=== PATIENT | male | born 1965 | race Caucasian/White ===

== ENCOUNTER 2017-04-22 11:15 | Inpatient (IN) | payer OTHER ==
[2017-04-22] VITALS (7 sets, daily range): BP systolic 117–159; BP diastolic 77–103; PULSE 85–90; RESP 14–20; TEMP 97.9–98.8; O2SAT 93–96
[~2017-04-22] VITALS: Ht 182.9 cm; Wt 122.6 kg
--- NOTE | 2017-04-22 11:59 | RADRPT ---
EXAM DATE/TIME: 04/22/2017 11:45 [facility] COMPARISON: No previous studies available for comparison. INDICATIONS : Left sided chest pain. MEDICAL HISTORY : None. SURGICAL HISTORY : None. ENCOUNTER: Initial ACUITY: 1 day PAIN SCORE: 5/10 LOCATION: Left chest FINDINGS: PA and lateral views of the chest demonstrate the lungs to be symmetrically aerated without evidence of mass, infiltrate or effusion. The cardiomediastinal contours are unremarkable. Osseous structure s are intact. CONCLUSION: No acute disease. Viet Gutierrez MD FACR on April 22, 2017 at 11:57 Board Certified Radiologist. This report was verified electronically.
[2017-04-22 12:06] LABS: AUTOMATED NEUTROPHIL # 6.2 TH/MM3 (1.8-7.7); BASOPHIL % 0.4 % (0.0-2.0); EOSINOPHIL # 0.2 TH/MM3 (0-0.4); EOSINOPHIL % 2.6 % (0.0-4.0); HEMATOCRIT 48.5 % (39.0-51.0); HEMOGLOBIN 16.6 GM/DL (13.0-17.0); LYMPH % 17.2 % (9.0-44.0); LYMPHOCYTE # 1.5 TH/MM3 (1.0-4.8); MEAN CELL VOLUME 94.4 FL (80.0-100.0); MEAN CORPUSCULAR HEMOGLOBIN 32.3 PG (27.0-34.0); MEAN CORPUSCULAR HGB CONC 34.3 % (32.0-36.0); MEAN PLATELET VOLUME 7.6 FL (7.0-11.0); MONO % 10.5 % (0.0-8.0); MONOCYTE # 0.9 TH/MM3 (0-0.9); NEUT % 69.3 % (16.0-70.0); PLATELET COUNT 134 TH/MM3 (150-450); RED BLOOD COUNT 5.14 MIL/MM3 (4.50-5.90); RED CELL DISTRIBUTION WIDTH 13.6 % (11.6-17.2)
[2017-04-22] MEDS ORDERED: [UNRECOGNIZED DRUG - CODE] TOPICAL (12:11)
[2017-04-22] MEDS ORDERED: ATEN25TA PO (12:11)
[2017-04-22 12:26] LABS: BICARBONATE 27.8 MEQ/L (21.0-32.0); CALCIUM 8.6 MG/DL (8.5-10.1); CREATININE 1.31 MG/DL (0.60-1.30)
[2017-04-22] MEDS ORDERED: ASPIRIN 81 MG CHEW TAB PO ONE (12:30)
[2017-04-22] MEDS ORDERED: SODIUM CHLORIDE 0.9% FLUSH 10 ML FLUSH IVF PRN (12:30)
[2017-04-22] MEDS ORDERED: SODIUM CHLORID 0.9% 500 ML INJ 500 ML IV ONE (12:30)
[2017-04-22] MEDS ORDERED: NITROGLYCERIN 2% OINT 1 GM PACKET TOP ONE (12:30)
[2017-04-22 12:31] LABS: TROPONIN I 0.18 NG/ML (0.02-0.05)
--- NOTE | 2017-04-22 12:36 | PD ---
HPI Chief Complaint: Chest Pain Time Seen by Provider: 12:20 Travel History International Travel<30 days: No Contact w/Intl Traveler<30days: No Traveled to known affect area: No History of Present Illness HPI The patient is a 51-year-old male who presents to the emergency department for chest pain. The patient states he has had some exertional symptoms for the last several weeks, but developed chest pain last night. The patient was at work, at the [employer], when he developed chest pain. The chest pain was left-sided, initially described as tightness and pressure, but did become sharp. The pain lasted until he sat down. He did complain of mild shortness of breath and chest tightness with his symptoms, denied any nausea, vomiting, or diaphoresis. After he rested for a while the chest pain resolved, however, returned this morning while he was getting dressed. He was seen at [facility] office where he had an EKG performed revealing inverted T waves and was sent to emergency department for further evaluation. The patient does have a history of hypertension, denies any history of hyperlipidemia, tobacco use, diabetes, CAD, or significant early family history for heart disease. He does complain of some exertional symptoms. The patient's primary physician is Dr. Drake Taylor. COUNT INCLUDES THE [facility] Past Medical History Cardiovascular Problems: Yes (HTN) Hypertension: Yes Sleep Apnea: Yes Tetanus Vaccination: Unknown Influenza Vaccination: No Social History Alcohol Use: Yes Tobacco Use: No Substance Use: No Allergies-Medications (Allergen,Severity, Reaction): Coded Allergies: No Known Allergies (Unverified , 04/22/17) Reported Meds & Prescriptions Reported Meds & Active Scripts Active Reported Ciclopirox Topical (Ciclopirox Olamine) 0.77% Cream 1 Applic TOPICAL TID Atenolol 25 Mg Tab 25 Mg PO DAILY Review of Systems Except as stated in HPI: all other systems reviewed are Neg General / Constitutional: No: Fever HENT: No: Lightheadedness Cardiovascular: Positive: Chest Pain or Discomfort, Dyspnea on exertion, No: Diaphoresis Respiratory: Positive: Shortness of Breath Gastrointestinal: No: Nausea, Vomiting Musculoskeletal: No: Weakness, Edema Neurologic: No: Dizziness Physical Exam Narrative GENERAL: Awake, alert, pleasant 51-year-old male who appears his stated age and is in no acute respiratory distress. SKIN: Focused skin assessment warm/dry. HEAD: Atraumatic. Normocephalic. EYES: No injection or drainage. ENT: No nasal bleeding or discharge. Mucous membranes pink and moist. NECK: Trachea midline. No JVD. CARDIOVASCULAR: Regular rate and rhythm. No murmur appreciated. RESPIRATORY: No accessory muscle use. Clear to auscultation. Breath sounds equal bilaterally. GASTROINTESTINAL: Abdomen soft, non-tender, nondistended. No rebound tenderness. MUSCULOSKELETAL: No obvious deformities. No clubbing. No cyanosis. No edema. NEUROLOGICAL: Awake and alert. No obvious cranial nerve deficits. Motor grossly within normal limits. Normal speech. Nonfocal. PSYCHIATRIC: Appropriate mood and affect; insight and judgment normal. Data Data Last Documented VS Vital Signs Date Time Temp Pulse Resp B/P (MAP) Pulse Ox O2 Delivery O2 Flow Rate FiO2 04/22/17 12:25 86 17 129/82 (98) 96 Room Air 134/90 (105) 04/22/17 11:19 97.9 Orders Orders Electrocardiogram (04/22/17 11:27) Complete Blood Count With Diff (04/22/17 11:27) Basic Metabolic Panel (Bmp) (04/22/17 11:27) Ckmb (Isoenzyme) Profile (04/22/17 11:27) Troponin I (04/22/17 11:27) Chest, Pa & Lat (04/22/17 ) Basic Metabolic Panel (Bmp) (04/22/17 12:20) Ecg Monitoring (04/22/17 12:20) Bilateral Bp Monitoring (04/22/17 12:20) Iv Access Insert/Monitor (04/22/17 12:20) Oximetry (04/22/17 12:20) Oxygen Administration (04/22/17 12:20) Aspirin Chew (Aspirin Chew) (04/22/17 12:30) Nitroglycerin 2% Oint (Nitroglycerin 2% (04/22/17 12:30) Sodium Chloride 0.9% Flush (Ns Flush) (04/22/17 12:30) Sodium Chlorid 0.9% 500 Ml Inj (Ns 500 M (04/22/17 12:30) Heparin Inj (Heparin Inj) (04/22/17 13:15) Heparin Inj (Heparin Inj) (04/22/17 19:15) Heparin Inj (Heparin Inj) (04/22/17 19:15) Heparin-D5w 25,000 U/250 Ml (Heparin-D5w (04/22/17 14:00) Act Partial Throm Time (Ptt) (04/22/17 13:02) Prothrombin Time / Inr (Pt) (04/22/17 13:02) Cbc No Diff, Includes Plts (04/22/17 13:02) Cbc No Diff, Includes Plts (04/25/17 06:00) Act Partial Throm Time (Ptt) (04/22/17 20:02) Occult Blood (Hemoccult) Stool (04/22/17 13:02) Admit Order (Ed Use Only) (04/22/17 13:30) Admit To Inpatient (04/22/17 ) Code Status (04/22/17 13:29) Vital Signs (Adult) Q4H (04/22/17 13:29) Activity Oob With Assistance (04/22/17 13:29) Pet Caretaker / Telemetry .CONTINUOUS (04/22/17 13:29) Diet Npo (04/22/17 Lunch) Sodium Chloride 0.9% Flush (Ns Flush) (04/22/17 13:30) Sodium Chloride 0.9% Flush (Ns Flush) (04/22/17 21:00) Acetaminophen (Tylenol) (04/22/17 13:30) Ondansetron Inj (Zofran Inj) (04/22/17 13:30) Basic Metabolic Panel (Bmp) (04/23/17 06:00) Complete Blood Count With Diff (04/23/17 06:00) Chest, Single Ap (04/22/17 13:29) Electrocardiogram (04/22/17 18:00) Electrocardiogram (04/23/17 00:00) Resp Oxygen Zak C Titrat 1-4 L (04/22/17 ) Naloxone Inj (Narcan Inj) (04/22/17 13:30) Magnesium Hydroxide Liq (Milk Of Magnesi (04/22/17 13:30) Inpatient Certification (04/22/17 ) Labs Laboratory Tests Test 04/22/17 11:38 04/22/17 12:30 04/22/17 13:20 White Blood Count 9.0 TH/MM3 8.5 TH/MM3 Red Blood Count 5.14 MIL/MM3 4.63 MIL/MM3 Hemoglobin 16.6 GM/DL 15.2 GM/DL Hematocrit 48.5 % 44.1 % Mean Corpuscular Volume 94.4 FL 95.2 FL Mean Corpuscular Hemoglobin 32.3 PG 32.9 PG Mean Corpuscular Hemoglobin Concent 34.3 % 34.6 % Red Cell Distribution Width 13.6 % 13.8 % Platelet Count 134 TH/MM3 113 TH/MM3 Mean Platelet Volume 7.6 FL 7.5 FL Neutrophils (%) (Auto) 69.3 % Lymphocytes (%) (Auto) 17.2 % Monocytes (%) (Auto) 10.5 % Eosinophils (%) (Auto) 2.6 % Basophils (%) (Auto) 0.4 % Neutrophils # (Auto) 6.2 TH/MM3 Lymphocytes # (Auto) 1.5 TH/MM3 Monocytes # (Auto) 0.9 TH/MM3 Eosinophils # (Auto) 0.2 TH/MM3 Basophils # (Auto) 0.0 TH/MM3 CBC Comment DIFF FINAL Differential Comment Blood Urea Nitrogen 12 MG/DL 12 MG/DL Creatinine 1.31 MG/DL 1.21 MG/DL Random Glucose 122 MG/DL 118 MG/DL Calcium Level 8.6 MG/DL 8.4 MG/DL Sodium Level 140 MEQ/L 140 MEQ/L Potassium Level 3.9 MEQ/L 4.0 MEQ/L Chloride Level 105 MEQ/L 107 MEQ/L Carbon Dioxide Level 27.8 MEQ/L 27.4 MEQ/L Anion Gap 7 MEQ/L 6 MEQ/L Estimat Glomerular Filtration Rate 58 ML/MIN 63 ML/MIN Total Creatine Kinase 93 U/L Troponin I 0.18 NG/ML Prothrombin Time 10.9 SEC Prothromb Time International Ratio 1.1 RATIO Activated Partial Thromboplast Time 25.4 SEC MDM Medical Decision Making Medical Screen Exam Complete: Yes Emergency Medical Condition: Yes Medical Record Reviewed: Yes Interpretation(s) EKG reveals normal sinus rhythm with a rate 87. Inverted T waves noted in lead V1, V2, V3, V4. Last Impressions Chest X-Ray 04/22/17 0000 Signed Impressions: Service Date/Time: Saturday, April 22, 2017 11:45 - CONCLUSION: No acute disease. Viet Gutierrez MD FACR Laboratory Tests Test 04/22/17 11:38 04/22/17 12:30 White Blood Count 9.0 TH/MM3 Red Blood Count 5.14 MIL/MM3 Hemoglobin 16.6 GM/DL Hematocrit 48.5 % Mean Corpuscular Volume 94.4 FL Mean Corpuscular Hemoglobin 32.3 PG Mean Corpuscular Hemoglobin Concent 34.3 % Red Cell Distribution Width 13.6 % Platelet Count 134 TH/MM3 Mean Platelet Volume 7.6 FL Neutrophils (%) (Auto) 69.3 % Lymphocytes (%) (Auto) 17.2 % Monocytes (%) (Auto) 10.5 % Eosinophils (%) (Auto) 2.6 % Basophils (%) (Auto) 0.4 % Neutrophils # (Auto) 6.2 TH/MM3 Lymphocytes # (Auto) 1.5 TH/MM3 Monocytes # (Auto) 0.9 TH/MM3 Eosinophils # (Auto) 0.2 TH/MM3 Basophils # (Auto) 0.0 TH/MM3 CBC Comment DIFF FINAL Differential Comment Blood Urea Nitrogen 12 MG/DL Creatinine 1.31 MG/DL Random Glucose 122 MG/DL Calcium Level 8.6 MG/DL Sodium Level 140 MEQ/L Potassium Level 3.9 MEQ/L Chloride Level 105 MEQ/L Carbon Dioxide Level 27.8 MEQ/L Anion Gap 7 MEQ/L Estimat Glomerular Filtration Rate 58 ML/MIN Total Creatine Kinase 93 U/L Troponin I 0.18 NG/ML Differential Diagnosis Differential diagnosis includes acute coronary syndrome, deconditioning, STEMI, angina, cardiomyopathy, congestive heart failure. Narrative Course IV was established, labs are drawn and sent, and the patient was placed on cardiac telemetry monitoring and continuous pulse oximetry monitoring. EKG was ordered and interpreted. The patient does have inverted T waves in V1 through V4 which appear new compared to old EKGs. The patient was administered aspirin placed and on Nitropaste. Chest x-rays unremarkable. The patient's troponin was positive at 0.18, with EKG changes and inverted T waves, the patient has acute coronary syndrome. A call was placed to the on-call [facility] medicine team as well as the on-call [facility] cardiology team. The patient may need heparin and/or Lovenox. The patient was placed on a heparin drip. I discussed the patient with Dr. Boo and Dr. Asher, the patient will be kept nothing by mouth for the cardiac catheterization lab later today. Critical Care Narrative Aggregate critical care time was 35 minutes. Time to perform other separately billable procedures was not included in the critical care time. My time did not include minutes spent treating any other patients simultaneously or on activities that did not directly contribute to the patient's treatment. The services I provided to this patient were to treat and/or prevent clinically significant deterioration that could result in: Ischemia, arrhythmia, myocardial infarction. I provided critical care services requiring my management, as noted below: Chart data review, documentation time, medication orders and management, vital sign assessments/reviewing monitor data, ordering and reviewing lab tests, ordering and interpreting/reviewing x-rays and diagnostic studies, care of the patient and discussion of the patient with the admitting physicians. Physician Communication Physician Communication The on-call [facility] medicine team and employment instructional associate were paged. I discussed the patient with Dr. Boo, Dr. Hale, and Dr. Asher. Diagnosis Primary Impression: NSTEMI, initial episode of care Admitting Information Admitting Physician Requests: Admit Condition: Stable Ulysses Paulino MD Apr 22, 2017 12:36
[2017-04-22 13:06] LABS: BICARBONATE 27.4 MEQ/L (21.0-32.0); CALCIUM 8.4 MG/DL (8.5-10.1); CREATININE 1.21 MG/DL (0.60-1.30)
[2017-04-22] MEDS ORDERED: HEPARIN SODIUM - IV 10,000 UNITS/10 ML VIAL IV ONE (13:15)
[2017-04-22] MEDS ORDERED: NALOXONE HCL 0.4 MG/ML AMP IV PUSH PRN (13:30)
[2017-04-22] MEDS ORDERED: MAGNESIUM HYDROXIDE SUSP 30 ML CUP PO PRN (13:30)
[2017-04-22] MEDS ORDERED: ONDANSETRON HCL 4 MG/2 ML VIAL IVP PRN (13:30)
[2017-04-22] MEDS ORDERED: ACETAMINOPHEN 325 MG TAB PO PRN (13:30)
[2017-04-22] MEDS ORDERED: SODIUM CHLORIDE 0.9% FLUSH 10 ML FLUSH IV FLUSH PRN (13:30)
--- NOTE | 2017-04-22 13:40 | HHI.HP ---
HPI Service [facility] Hospitalists Primary Care Physician Drake Taylor MD Admission Diagnosis NSTEMI Chief Complaint: chest pain Travel History International Travel<30 Days: No Contact w/Intl Traveler <30 Da: No Traveled to Known Affected Are: No History of Present Illness This is a 51 year old male patient with a past medical history which includes HTN, Hyperlipidemia, obesity and sleep apnea. Patient presented to the ER today with left sided chest pain which start last night. 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 Patient reports the chest pain lasted approximately 2-3 minutes and was told he sat down and struck. The patient got up this morning and was getting dressed reports chest pain came back again. Chest pain is exacerbated by activity such as walking and relieved with sitting and rest. EKG on admission reveals: inverted T waves in V1 through V4 which appear new compared to old EKGs Initial troponin 0.18 Review of Systems Constitutional: COMPLAINS OF: Diaphoretic episodes Respiratory: COMPLAINS OF: Shortness of breath Cardiovascular: COMPLAINS OF: Chest pain Past Family Social History Past Medical History HTN, Hyperlipidemia, obesity and sleep apnea. Past Surgical History Hand surgery Jaw surgery Oral surgery for tooth extraction Reported Medications Ciclopirox Topical (Ciclopirox Olamine) 0.77% Cream 1 Applic TOPICAL TID Atenolol 25 Mg Tab 25 Mg PO DAILY Allergies: Coded Allergies: No Known Allergies (Unverified , 04/22/17) Family History Mother passed with secondary breast cancer Patient has brother and sister who are alive and healthy Social History ETOH use daily 3-4 beer per day denies tobacco use now or in the past Physical Exam Vital Signs Vital Signs Date Time Temp Pulse Resp B/P (MAP) Pulse Ox O2 Delivery O2 Flow Rate FiO2 04/22/17 12:25 86 17 129/82 (98) 96 Room Air 134/90 (105) 04/22/17 12:24 96 Room Air 04/22/17 12:24 86 17 129/82 (98) 96 Room Air 04/22/17 12:13 90 19 129/82 (98) 95 Room Air 04/22/17 12:13 87 19 94 Room Air 04/22/17 11:19 97.9 88 14 159/103 (121) 96 Room Air Physical Exam GENERAL: This is a well-nourished, well-developed patient SKIN: No rashes, ecchymoses or lesions. Cool and dry. HEAD: Atraumatic. Normocephalic. No temporal or scalp tenderness. EYES: Extraocular motions intact. No scleral icterus. No injection or drainage. CARDIOVASCULAR: Regular rate and rhythm RESPIRATORY: Clear to auscultation. Breath sounds equal bilaterally. GASTROINTESTINAL: Abdomen soft, non-tender, nondistended. No hepato-splenomegaly , or palpable masses. No guarding. MUSCULOSKELETAL: Extremities without clubbing, cyanosis, or edema. No joint tenderness, effusion, or edema noted. No calf tenderness. Negative Homans sign bilaterally. NEUROLOGICAL: Awake and alert. No focal deficits appreciated. Motor and sensory grossly within normal limits. Five out of 5 muscle strength in all muscle groups. Normal speech. Laboratory Laboratory Tests Test 04/22/17 11:38 04/22/17 12:30 White Blood Count 9.0 Red Blood Count 5.14 Hemoglobin 16.6 Hematocrit 48.5 Mean Corpuscular Volume 94.4 Mean Corpuscular Hemoglobin 32.3 Mean Corpuscular Hemoglobin Concent 34.3 Red Cell Distribution Width 13.6 Platelet Count 134 Mean Platelet Volume 7.6 Neutrophils (%) (Auto) 69.3 Lymphocytes (%) (Auto) 17.2 Monocytes (%) (Auto) 10.5 Eosinophils (%) (Auto) 2.6 Basophils (%) (Auto) 0.4 Neutrophils # (Auto) 6.2 Lymphocytes # (Auto) 1.5 Monocytes # (Auto) 0.9 Eosinophils # (Auto) 0.2 Basophils # (Auto) 0.0 CBC Comment DIFF FINAL Differential Comment Blood Urea Nitrogen 12 12 Creatinine 1.31 1.21 Random Glucose 122 118 Calcium Level 8.6 8.4 Sodium Level 140 140 Potassium Level 3.9 4.0 Chloride Level 105 107 Carbon Dioxide Level 27.8 27.4 Anion Gap 7 6 Estimat Glomerular Filtration Rate 58 63 Total Creatine Kinase 93 Troponin I 0.18 Result Diagram: 04/22/17 1138 04/22/17 1230 Imaging Last Impressions Chest X-Ray 04/22/17 0000 Signed Impressions: Service Date/Time: Saturday, April 22, 2017 11:45 - CONCLUSION: No acute disease. Viet Gutierrez MD FACR Ronaldo VTE Risk Assessment Caprini VTE Risk Assessment: No/Low Risk (score <= 1) Caprini Risk Assessment Model Point Value = 1 Point Value = 2 Point Value = 3 Point Value = 5 Age 41-60 Minor surgery BMI > 25 kg/m2 Swollen legs Varicose veins or History of unexplained or recurrent spontaneous Oral contraceptives or hormone replacement Sepsis (< 1 month) Serious lung disease, including pneumonia (< 1 month) Abnormal pulmonary function Acute myocardial infarction Congestive heart failure (< 1 month) History of inflammatory bowel disease Medical patient at bed rest Age 61-74 Arthroscopic surgery Major open surgery (> 45 min) Laparoscopic surgery (> 45 min) Malignancy Confined to bed (> 72 hours) Immobilizing plaster cast Central venous access Age >= 75 History of VTE Family history of VTE Factor V Leiden Prothrombin [id number] Lupus anticoagulant Anticardiolipin antibodies Elevated serum homocysteine Heparin-induced thrombocytopenia Other congenital or acquired thrombophilia Stroke (< 1 month) Elective arthroplasty Hip, pelvis, or leg fracture Acute spinal cord injury (< 1 month) Prophylaxis Regimen Total Risk Factor Score Risk Level Prophylaxis Regimen 0-1 Low Early ambulation 2 Moderate Order ONE of the following: *Sequential Compression Device (SCD) *Heparin 5000 units SQ BID 3-4 Higher Order ONE of the following medications: *Heparin 5000 units SQ TID *Enoxaparin/Lovenox 40 mg SQ daily (WT < 150 kg, CrCl > 30 mL/min) *Enoxaparin/Lovenox 30 mg SQ daily (WT < 150 kg, CrCl > 10-29 mL/min) *Enoxaparin/Lovenox 30 mg SQ BID (WT < 150 kg, CrCl > 30 mL/min) AND/OR *Sequential Compression Device (SCD) 5 or more Highest Order ONE of the following medications: *Heparin 5000 units SQ TID (Preferred with Epidurals) *Enoxaparin/Lovenox 40 mg SQ daily (WT < 150 kg, CrCl > 30 mL/min) *Enoxaparin/Lovenox 30 mg SQ daily (WT < 150 kg, CrCl > 10-29 mL/min) *Enoxaparin/Lovenox 30 mg SQ BID (WT < 150 kg, CrCl > 30 mL/min) AND *Sequential Compression Device (SCD) Assessment and Plan Problem List: (1) NSTEMI, initial episode of care ICD Codes: I21.4 - Non-ST elevation (NSTEMI) myocardial infarction Status: Acute Plan: Chest pain consistent with non-STEMI EKG on admission reveals: inverted T waves in V1 through V4 which appear new compared to old EKGs Initial troponin 0.18, serial cardiac enzymes pending Consult cardiology patient's been evaluated by Dr. Asher plans to take to cardiac Vehicle [employer] today Patient given aspirin and nitroglycerin paste in ER Patient started on heparin drip emergency department per protocol Patient nothing by mouth at this time Plan to resume atenolol tomorrow as patient is very taken his dose today and Lipid profile in a.m. 2-D echocardiogram requested (2) HTN (hypertension) ICD Codes: I10 - Essential (primary) hypertension Plan: Patient takes atenolol for hypertension 25 mg by mouth daily we'll resume in a.m. (3) Hyperlipidemia ICD Codes: E78.5 - Hyperlipidemia, unspecified Plan: Lipid profile in a.m. (4) EtOH dependence ICD Codes: F10.20 - Alcohol dependence, uncomplicated Status: Chronic Plan: [facility] protocol Assessment and Plan Patient examined. Assessment and plan formulated with Jocelyn Palomino PA-C. I agree with the above. Case d/w Dr. Asher, Cardiology, following [facility]. No significant stenosis. Will observe pt on telemetry overnight. If pt remains stable, anticipate d/c to home 04/23/17. Problem Qualifiers (1) EtOH dependence: Qualified Codes: F10.29 - Alcohol dependence with unspecified alcohol-induced disorder Jocelyn Palomino Apr 22, 2017 13:40 Asif Hale DO Apr 22, 2017 23:26
[2017-04-22 13:49] LABS: HEMATOCRIT 44.1 % (39.0-51.0); HEMOGLOBIN 15.2 GM/DL (13.0-17.0); MEAN CELL VOLUME 95.2 FL (80.0-100.0); MEAN CORPUSCULAR HEMOGLOBIN 32.9 PG (27.0-34.0); MEAN CORPUSCULAR HGB CONC 34.6 % (32.0-36.0); MEAN PLATELET VOLUME 7.5 FL (7.0-11.0); PLATELET COUNT 113 TH/MM3 (150-450); RED BLOOD COUNT 4.63 MIL/MM3 (4.50-5.90); RED CELL DISTRIBUTION WIDTH 13.8 % (11.6-17.2); WHITE BLOOD COUNT 8.5 TH/MM3 (4.0-11.0)
[2017-04-22 13:54] LABS: INTERNATIONAL NORMALIZED RATIO 1.1 RATIO; PROTHROMBIN TIME - PATIENT 10.9 SEC (9.8-11.6)
[2017-04-22] MEDS ORDERED: LORazepam 2 MG TAB PO PRN (14:00)
[2017-04-22] MEDS ORDERED: FLUMAZENIL 0.5 MG/5 ML VIAL IV PUSH PRN (14:00)
[2017-04-22] MEDS ORDERED: LORazepam 1 MG TAB PO PRN (14:00)
[2017-04-22] MEDS ORDERED: HEPARIN-D5W 25,000 U/250 ML 250 ML IV PRN ×2 (14:00→15:00)
[2017-04-22] MEDS ORDERED: LORazepam 2 MG/ML VIAL IV PUSH PRN ×4 (14:00)
--- NOTE | 2017-04-22 14:53 | RADRPT ---
EXAM DATE/TIME: 04/22/2017 14:21 [facility] COMPARISON: CHEST PA & LAT, April 22, 2017, 11:45. INDICATIONS : Left lower chest pain. MEDICAL HISTORY : None. SURGICAL HISTORY : None. ENCOUNTER: Initial ACUITY: 1 day PAIN SCORE: 6/10 LOCATION: Left lower chest FINDINGS: A single view of the chest demonstrates the lungs to be symmetrically aerated without evidence of mas s, infiltrate or effusion. The cardiomediastinal contours are unremarkable. Osseous structures are intact. CONCLUSION: 1. No acute cardiopulmonary findings. Monty Gutierrez MD on April 22, 2017 at 14:51 Board Certified Radiologist. This report was verified electronically.
[2017-04-22] MEDS ORDERED: HEPARIN SODIUM - IV 10,000 UNITS/10 ML VIAL IV PRN ×4 (15:00→19:15)
[2017-04-22] MEDS ORDERED: ASPIRIN 325 MG TAB PO ONE (15:00)
[2017-04-22] MEDS ORDERED: NITROGLYCERIN 2% OINT 1 GM PACKET TOP SCH (15:00)
--- NOTE | 2017-04-22 15:17 | ECHRPT ---
Indication: CHEST PAIN CONCLUSIONS Normal left ventricular size. Wall thickness is normal. The left ventricular systolic function is low normal with an estimated ejection fraction in the rang e of 50- 55%. The pulmonary valve is not well visualized. BP: 134 / 90 HR: Rhythm: Sinus MEASUREMENTS (Male / Female) Normal Values Technical Quality:Very technically difficult study 2D ECHO LV Diastolic Diameter PLAX 4.5 cm 4.2 - 5.9 / 3.9 - 5.3 cm LV Systolic Diameter PLAX 3.5 cm IVS Diastolic Thickness 0.9 cm 0.6 - 1.0 / 0.6 - 0.9 cm LVPW Diastolic Thickness 0.9 cm 0.6 - 1.0 / 0.6 - 0.9 cm LV Relative Wall Thickness 0.4 RV Internal Dim ED PLAX 3.2 cm LVOT Diameter 2.3 cm Aortic Root Diameter 2.8 cm LA Systolic Diameter LX 3.2 cm 3.0 - 4.0 / 2.7 - 3.8 cm DOPPLER LVOT Peak Velocity 85.5 cm/s LVOT Peak Gradient 2.9 mmHg LVOT Velocity Time Integral 11.9 cm Mitral E Point Velocity 5.2 cm/s FINDINGS LEFT VENTRICLE Normal left ventricular size. Wall thickness is normal. The left ventricular systolic function is low normal with an estimated ejection fraction in the rang e of 50- 55%. RIGHT VENTRICLE Normal right ventricular size and systolic function. MITRAL VALVE Structurally normal mitral valve. No mitral valve stenosis or regurgitation. AORTIC VALVE Trileaflet aortic valve. No aortic valve stenosis or regurgitation. TRICUSPID VALVE Structurally normal tricuspid valve. No tricuspid valve stenosis or regurgitation. PULMONARY VALVE The pulmonary valve is not well visualized. VESSELS The inferior vena cava is normal in size. PERICARDIUM No pericardial effusion. Clarence Asher MD, FACC (Electronically Signed) Final Date:22 April 2017 15:15
[2017-04-22] MEDS ORDERED: MIDAZOLAM HCL 2 MG/2 ML VIAL ONE (15:27)
[2017-04-22] MEDS ORDERED: HEPARIN-NS/PF FLUSH BAG 1,000 ML IV FLUSH ONE (15:27)
[2017-04-22] MEDS ORDERED: HEPARIN SODIUM - IV 10,000 UNITS/10 ML VIAL ONE (15:28)
[2017-04-22] MEDS ORDERED: NITROGLYCERIN INJ 5 ML ONE (15:28)
--- NOTE | 2017-04-22 16:12 | CATHPROC ---
[employer] HIS Report Study Information Study Number Admission Scheduled Start Study Start [id number] Apr 22 2017 1:33PM 04/22/2017 Apr 22 2017 3:23PM Bryan Service Cardiac Catheterization Admit Source Facility Department Emergency department [facility] - Logistics Intern Physician and Clinical Staff Initial Clarence Block Mock Up Assembler Radha Pitts,DARLIN Mock Up Assembler Princess Saldivar,DARLIN Recorder Alissa Vega,RT(R) Recorder Paz Alexander RCIS TECH2 Scrub Nevaeh Sutton,RT(R) (BS) Scrub Sarah Mercado ,RT(R) Procedures Performed Procedure Location (Site) Vessel Name Angiogram LV AO Arch (A1) Aorta Coronary Angiograms LCA Left Coronary Coronary Angiograms RCA Right Coronary L Heart Cath Equipment Time Supervisor [employer] Description Size Mfg Part Number Used/Scraped TRANSDUCER, TRUWAVE [id number] 15:26 [employer] ONEAL * Used W/STOCKCOCK *[id number] 534-518T *[id number] [id number] *[id number] PIGTAIL ANG. 145 INFINITI [id number] CATHETER *[id number] 15:26 [employer] PACK, CCL CUSTOM * Used *[id number] 15:26 [employer] SUPPORT, ARTERIAL ADULT 39000 *[id number] Used [id number] 15:26 [employer] PACER PEN, SKIN DUAL W/ RULER * Used *[id number] BAND, RADIAL COMPRESSION TR [id number] 16:03 [employer] 29CM Used LARGE 29 *[id number] SHEATH, FR6 RADIAL PRELUDE 15:26 [employer] FR 6 [id number] Used EASE 11CM [id number] 15:26 [employer] WIRE, EXCHANGE 260CM 3MMJ 260CM Used *[id number] 15:53 NAMIC TUBING, HIGH PRESSURE 20" 20" Used *[id number] 15:26 [employer] OMNIPAQUE, 350 MG, 150ML 150ML [id number] Used 15:55 [employer] OMNIPAQUE, 350 MG, 50ML 50ML [id number] Used [id number] 15:26 Mtime BLANKET,WARM AIR CCL * Used *[id number] History: Current Medications Medication Dosage/Unit Route Frequency Last Date/Time Taken Beta Nusrat History: Allergies Allergy Reaction No Known Allergies History: Risk Factors Family History of Hypertension Dyslipidemia Previous [place] Previous Heart Failure Premature CAD Yes No No No No Prior Valve Prior PCI Prior CABG Surgery No No No Cerebrovascular Peripheral Artery Chronic Lung On Dialysis Diabetes Disease Disease Disease No No No No No History: Symptoms/Diagnosis Selection Items Chest pain History: Stress Tests Stress or Imaging Studies Performed No History: Other Current Smoker No Labs Hgb (g/dl) Hct (%) WBC (l/cumm) Platelets (thousands) 11.60-17.00 35.00-51.00 4.00-11.00 150.00-450.00 16.6 48.5 9 134 Glucose (mg/dl) BUN (mg/dl) Creatinine (mg/dl) BUN:Creatinine (1:x) 74.00-106.00 7.00-18.00 0.50-1.30 10.00-20.00 118 12 1.2 10 Na (meq/l) K (meq/l) 136.00-145.00 3.50-5.10 140 4 Troponin I (ng/ml) CPK (u/l) CPK-MB (ng/ML) 0.02-0.05 26.00-308.00 0.50-3.60 0.18 93 Not Drawn Medication Medication Total Dose (Bolus/Oral) Medication Total Dosage/Unit 1% XYLOCAINE 20 mL FENTANYL 50 mcg HEPARIN 5000 units NTG (IC) 200 mcg VERSED 1 mg Medications (Bolus/Oral) Medication Time Given Dosage/Unit Administered By Reason VERSED 04/22/2017 3:42:20 PM 1 mg Patient arrived on 1 mg VERSED in Right Antecubital via Peripheral IV. Ordered by Clarence Asher. 1% XYLOCAINE 04/22/2017 3:43:27 PM 20 mL Clarence Asher 20 mL 1% XYLOCAINE given in lab by Clarence Asher in Right Radial via Subcutaneous. Ordered by Clarence Asher. FENTANYL 04/22/2017 3:43:39 PM 50 mcg Patient arrived on 50 mcg FENTANYL in Right Antecubital via Peripheral IV. Ordered by Clarence Asher. NTG (IC) 04/22/2017 3:45:25 PM 200 mcg Clarence Asher 200 mcg NTG (IC) given in lab by Clarence Asher in Right Radial via Intra-arterial. Ordered by Clarence Asher. HEPARIN 04/22/2017 3:46:13 PM 5000 units Hesher, Princess 5000 units HEPARIN given in lab by Princess Saldivar, RN in Right Antecubital via Peripheral IV. Ordered by Clarence Asher. Medication (Drip) Medication Time Given Dosage/Unit Concentration/Unit Diluent (ml) Solution IV Solutions 04/22/2017 3:23:47 PM 0 mL (IV) 500 NaCl .9 Patient arrived on IV Solutions in Right Antecubital via Peripheral IV. Pump/Drip Flow = 20 ml/hr usi ng NaCl .9. Initial Case Assessment Cardiovascular HR Rhythm NIBP Chest Pain 87 sr 150/98 0 Circulatory - Right Pulses Dorsalis Pedis Femoral Radial 1 2 2 Scale (0,1,2,3,4,d) Circulatory - Left Pulses Dorsalis Pedis Femoral Radial 2 Scale (0,1,2,3,4,d) Neurological State Oriented to time-place- Alert Moves all extremities person Respiration - General Respiration Rate SpO2 (%) (B/min) 18 94 Final Case Assessment Cardiovascular HR Rhythm NIBP Chest Pain 84 sr 141/97 0 Circulatory - Right Pulses Dorsalis Pedis Femoral Radial 1 2 2 Scale (0,1,2,3,4,d) Scale (0,1,2,3,4,d) Neurological State Oriented to time-place- Alert Moves all extremities person Respiration - General Respiration Rate SpO2 (%) (B/min) 18 96 Chronological Log Time Study Chronological Log 15:19:23 Patient arrived via Bed. 15:23:31 Patient Name, D.O.B, / Armband Verified By R.N. 15:23:32 Consent signed by the physician and the patient and verified by the Logistics Intern staff. 15:23:32 Pre-op and post- op instructions given; patient acknowledges understanding of instructions. 15:23:36 Verbal Stimulation=2 Physical Stimulation=2 Airway=2 Respiration=2 TOTAL=8. (0=absent, 1=li mited, 2=present) 15:23:38 Presedation assessment performed by Logistics Intern RN. 15:23:40 Allens test performed on the right radial and ulnar artery. 15:23:42 Patient has been NPO for More than 6Hrs. 15:23:42 Skin Breakdown-none 15:23:43 Patient Warmer Placed on the Table. 15:23:44 Dave Prominences Protected 15:23:46 A # 20 IV was noted in the Antecubital (right). Grade = 0 15:23:47 Patient arrived on IV Solutions in Right Antecubital via Peripheral IV. Pump/Drip Flow = 20 ml/hr using NaCl .9. 15:23:49 History and physical on the chart or being dictated. Assessment: Initial Case, HR=87 BPM, Rhythm=sr, XUOX=264/98 mmhg, Chest Pain=0 Right Pulses: Maxx Ped=1, Femoral=2, Radial=2 15:23:50 Left Pulses: Femoral=2 Neurological: State=Alert, Ox3, DODGE Respiration: Resp=18 B/min, SpO2=94 % Vitals capture started with the following parameters, Patient=Adult, Interval=5 min, Initial Pr cvlpyc=012 mmHg, 15:23:52 Deflation Rate=5 mmHg, Cuff placed on Left Arm 15:24:32 UWXG=580/96 mmhg, SpO2=93.0 % 15:29:35 HR=88 bpm, HIAV=856/92 mmhg, SpO2=93 %, Resp=16 B/min 15:34:32 HR=86 bpm, DPLI=996/98 mmhg, SpO2=92.0 %, Resp=17 B/min 15:35:32 Right groin and right wrist prepped with 2% chlorhexidine, and draped after a 3 min. waitin g time. 15:39:16 MD arrived. 15:39:31 HR=90 bpm, SZPL=683/95 mmhg, SpO2=94 %, Resp=19 B/min 15:40:57 Pressure channel 1 zeroed. 15:42:20 Patient arrived on 1 mg VERSED in Right Antecubital via Peripheral IV. Ordered by St dav Asher. Time Out. Correct patient, correct procedure, correct physician, power injector loaded, or not loaded with contrast with 15:42:29 surgical team present. Time Out Concurred by MD and individual staff in procedure. 15:43:26 Case Start 15:43:27 20 mL 1% XYLOCAINE given in lab by Clarence Asher in Right Radial via Subcutaneous. Ordered by Clarence Asher. 15:43:39 Patient arrived on 50 mcg FENTANYL in Right Antecubital via Peripheral IV. Ordered by Clarence Asher. 15:44:13 Access site was Radial Artery. right 15:44:30 HR=90 bpm, DDQB=238/89 mmhg, SpO2=91 %, Resp=15 B/min A SHEATH, FR6 RADIAL PRELUDE EASE 11CM FR 6 was advanced into the Radial (right) using the Perc utaneous 15:45:07 technique. Sheath sutured 15:45:25 200 mcg NTG (IC) given in lab by Clarence Asher in Right Radial via Intra-arterial. Ordered by Clarence Asher. 15:45:36 Reference ECG taken 5000 units HEPARIN given in lab by Princess Saldivar, RN in Right Antecubital via Peripheral IV. O rdered by Lb 15:46:13 Clarence. Recorded Pressure: LV, HR=88, Condition=Condition 1 15:46:39 (Left Ventricle) LV 109/7/9 Recorded Pressure: LV, Ao, HR=87, Condition=Condition 1 15:46:45 (Left Ventricle) LV 112/8/11, (Aorta) Ao 118/86/101 15:47:02 The RCA was injected and visualized at various angles. OMNIPAQUE, 350 MG, 150ML 150ML use d. After removing the current catheter a JL 3.5 INFINITI CATHETER FR 5 was advanced over a WIRE, EXCHANGE 260CM 15:49:12 3MMJ 260CM. 15:49:29 HR=87 bpm, VEHW=034/93 mmhg, SpO2=92.0 %, Resp=13 B/min 15:49:57 The LCA was injected and visualized at various angles. OMNIPAQUE, 350 MG, 150ML 150ML use d. A PIGTAIL ANG. 145 INFINITI CATHETER FR 6 was advanced over a wire. OMNIPAQUE, 350 MG, 50ML 50 ML was used 15:54:21 for injections. 15:54:56 HR=87 bpm, RAMM=154/98 mmhg, SpO2=96.0 %, Resp=14 B/min 15:55:09 The AO Arch (A1) was injected at 20 cc/sec for a total of 40. OMNIPAQUE, 350 MG, 50ML 50ML used. 15:55:41 Catheter was removed over wire 15:57:03 Case End 15:59:33 HR=84 bpm, DHDA=210/96 mmhg, SpO2=98.0 %, Resp=17 B/min Radial Compression Device Used. 10 mLs of air placed in BAND, RADIAL COMPRESSION TR LARGE 29 2 9CM. Affected 16:02:21 hand 97 % O2 saturation. 16:02:48 No case complications noted. 16:02:50 Cine recording checked. 16:02:52 Bedside Report will be given. 16:02:59 A Left Heart Cath was performed. 16:04:30 HR=84 bpm, EOIY=035/97 mmhg, SpO2=96.0 %, Resp=18 B/min Assessment: Final Case, HR=84 BPM, Rhythm=sr, SLES=763/97 mmhg, Chest Pain=0 Right Pulses: Maxx Ped=1, Femoral=2, Radial=2 16:04:40 Neurological: State=Alert, Ox3, DODGE Respiration: Resp=18 B/min, SpO2=96 % 16:07:14 Patient moved to bed. 16:08:44 Patient transported to DOCU. 16:09:34 Vitals capture stopped. End Study - Maximum Contrast Load Max Contrast Load (mL) 525.0 End Study - Radiation Exposure Fluoro Time (minutes) 1.4 End Study - Sheaths Sheaths Pulled By Sheath Hold Time (min) Sarah Mercado End Study - Patient Disposition Complications Transferred To Interventional Outcome No Telemetry Bed No attempt made
[2017-04-22] MEDS ORDERED: MISC INFORMATION XX ONE (16:15)
--- NOTE | 2017-04-22 16:32 | MA ---
cc: EARL DOWNEY DATE: 04/22/2017. INDICATIONS FOR THE PROCEDURE: Non S-T elevation myocardial infarction. PROCEDURES PERFORMED: 1. Fluoroscopy with identification. 2. Coronary angiography 3. Left heart catheterization. 4. Descending aortography. METHOD: Risks, benefits, and alternatives were discussed with the patient. The patient understood and consented to the procedure. The patient was brought into the cardiac catheterization laboratory and placed on the catheterization table. The right wrist was prepped and draped in the sterile fashion. The right wrist was anesthetized with 2% lidocaine. The right radial artery was cannulated and a 6-Palauan 7 cm sheath was placed without difficulty. LEFT HEART CATHETERIZATION: Intraventricular hemodynamics: 112/8 mmHg. CORONARY ANGIOGRAPHY: 1. The left main coronary artery is angiographically normal. 2. Left anterior descending artery is angiographically normal. 3. Left circumflex gives rise to an obtuse marginal branch and is angiographically normal. 4. Right coronary artery is a dominant vessel giving rise to a posterior descending coronary artery and is angiographically normal. DESCENDING AORTOGRAPHY: Descending aortography of the ascending aorta was performed with a 40 cc contrast injection in left anterior oblique view. There is no evidence for dissection or aneurysm. CONCLUSIONS: 1. Normal coronary arteries. 2. Normal left-sided filling pressures. 3. Normal aorta. PLAN: The patient's symptoms suggest the EKG changes suggestive and troponin elevation are all concerning for obstructive physiology, but there is no fixed stenosis. I suspect a vasospasm. Will add amlodipine. Monitor him overnight for any arrhythmias. Echocardiogram shows normal ejection fraction. He will be discharged tomorrow on medical therapy. MD LINDSEY Segura/PENG /4:05 PM /4:19 PM
--- NOTE | 2017-04-22 16:36 | MB ---
cc: EARL DOWNEY DATE OF CONSULTATION: 04/22/2017. REASON FOR CONSULTATION: Non S-T elevation myocardial infarction. HISTORY OF PRESENT ILLNESS: Cardiac catheterization was performed on April 22, 2017. This is a 71-year-old gentleman with history of hypertension, hyperlipidemia, obesity and sleep apnea who presented to the emergency department with left sided chest pain which started on and off since last night. It occurs worse with activity and is relieved with rest. It lasted about two to three minutes. Initial troponin was elevated. T waves are inverted through the early precordial leads. PAST MEDICAL HISTORY: As mentioned above. FAMILY HISTORY: Denies any early coronary disease or sudden cardiac . SOCIAL HISTORY: . Drinks about three to four beers a day. Denies any drug use or tobacco use. REVIEW OF SYSTEMS: His twelve-point review of systems was performed and is negative unless otherwise noted in the history of present illness. PHYSICAL EXAMINATION: VITAL SIGNS: Normal. GENERAL: Alert and oriented times three and in no acute distress. HEAD, EYES, EARS, NOSE, THROAT: Pupils reactive to light and accommodation. Extraocular muscles are intact. NECK: No elevation in jugular venous distension. No thyromegaly or lymphadenopathy. No carotid bruits. LUNGS: Clear to auscultation bilaterally. CARDIAC: Regular rate and rhythm without murmurs, rubs or gallops. ABDOMEN: Nontender, nondistended. Good bowel sounds. No hepatosplenomegaly. EXTREMITIES: Show no clubbing, cyanosis or edema. Good peripheral pulses. NEUROLOGICAL EXAMINATION: Cranial nerves are intact. Motor strength is grossly intact. LABORATORY DATA: WBC 8.5, hemoglobin 15.2, platelet count is 113,000. INR is 1.1. Sodium 140, potassium 4.0, BUN is 22, creatinine is 1.21. ASSESSMENT: 1. Unstable angina. 2. Hypertension. 3. Hyperlipidemia. PLAN: Given the EKG, cardiac biomarkers and symptoms, will proceed directly with cardiac catheterization. Based on the electrocardiogram, would be worried about left anterior descending coronary stenosis. MD LINDSEY Segura/PENG /4:07 PM /4:26 PM
[2017-04-22] MEDS: SODIUM CHLORIDE 0.9% FLUSH 10 ML FLUSH IV FLUSH SCH (20:47)
[2017-04-22 23:03] LABS: TROPONIN I 0.09 NG/ML (0.02-0.05)
[2017-04-23 00:02] VITALS: PULSE 82
[2017-04-23 00:40] VITALS: BP 132/81; PULSE 84; RESP 20; TEMP 98; O2SAT 94
[2017-04-23 03:50] VITALS: PULSE 79
[2017-04-23 04:00] VITALS: BP 124/90; PULSE 78; RESP 20; TEMP 97.3; O2SAT 94
[2017-04-23 05:03] LABS: AUTOMATED NEUTROPHIL # 3.5 TH/MM3 (1.8-7.7); BASOPHIL % 0.6 % (0.0-2.0); EOSINOPHIL # 0.4 TH/MM3 (0-0.4); EOSINOPHIL % 5.8 % (0.0-4.0); HEMATOCRIT 42.1 % (39.0-51.0); HEMOGLOBIN 14.3 GM/DL (13.0-17.0); LYMPH % 32.6 % (9.0-44.0); LYMPHOCYTE # 2.2 TH/MM3 (1.0-4.8); MEAN CELL VOLUME 95.1 FL (80.0-100.0); MEAN CORPUSCULAR HEMOGLOBIN 32.3 PG (27.0-34.0); MEAN PLATELET VOLUME 7.5 FL (7.0-11.0); MONO % 9.3 % (0.0-8.0); MONOCYTE # 0.6 TH/MM3 (0-0.9); NEUT % 51.7 % (16.0-70.0); PLATELET COUNT 105 TH/MM3 (150-450); RED BLOOD COUNT 4.43 MIL/MM3 (4.50-5.90); RED CELL DISTRIBUTION WIDTH 13.8 % (11.6-17.2); WHITE BLOOD COUNT 6.8 TH/MM3 (4.0-11.0)
[2017-04-23 05:32] LABS: BICARBONATE 28.3 MEQ/L (21.0-32.0); CREATININE 1.04 MG/DL (0.60-1.30)
[2017-04-23 05:36] LABS: CHOLESTEROL/ HDL RATIO 3.67 RATIO; HDL CHOLESTEROL 45.2 MG/DL (40.0-60.0); TROPONIN I 0.06 NG/ML (0.02-0.05)
[2017-04-23 08:00] VITALS: BP 147/87; PULSE 81; PULSE 89; RESP 16; TEMP 98; O2SAT 97
[2017-04-23] MEDS ORDERED: ASPIRIN 325 MG TAB PO SCH (09:00)
[2017-04-23] MEDS ORDERED: amLODIPine BESYLATE 5 MG TAB PO SCH (09:00)
[2017-04-23] MEDS ORDERED: ATENOLOL 25 MG TAB PO SCH (09:00)
[2017-04-23] MEDS ORDERED: AMLO5 PO (09:33)
--- NOTE | 2017-04-23 09:41 | HHI.DS ---
Discharge Summary Admission Date Apr 22, 2017 at 13:33 Discharge Date: Apr 23, 2017 Admitting Diagnosis NSTEMI (1) NSTEMI, initial episode of care Diagnosis: Principal ICD Codes: I21.4 - Non-ST elevation (NSTEMI) myocardial infarction Status: Acute (2) HTN (hypertension) Diagnosis: Secondary ICD Codes: I10 - Essential (primary) hypertension (3) Hyperlipidemia Diagnosis: Secondary ICD Codes: E78.5 - Hyperlipidemia, unspecified (4) EtOH dependence Diagnosis: Secondary ICD Codes: F10.20 - Alcohol dependence, uncomplicated Status: Chronic Consultants Dr. Asher, cardiology Procedures cardiac catheterization 04/22/17 Brief History This is a 51 year old male patient with a past medical history which includes HTN, Hyperlipidemia, obesity and sleep apnea. Patient presented to the ER today with left sided chest pain which start last night. 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 Patient reports the chest pain lasted approximately 2-3 minutes and was told he sat down and struck. The patient got up this morning and was getting dressed reports chest pain came back again. Chest pain is exacerbated by activity such as walking and relieved with sitting and rest. EKG on admission reveals: inverted T waves in V1 through V4 which appear new compared to old EKGs Initial troponin 0.18 CBC/BMP: 04/23/17 0434 04/23/17 0434 Significant Findings Laboratory Tests Test 04/22/17 11:38 04/22/17 12:30 04/22/17 13:20 04/22/17 21:44 Platelet Count 134 TH/MM3 (150-450) 113 TH/MM3 (150-450) Monocytes (%) (Auto) 10.5 % (0.0-8.0) Creatinine 1.31 MG/DL (0.60-1.30) Random Glucose 122 MG/DL (74-106) 118 MG/DL (74-106) Estimat Glomerular Filtration Rate 58 ML/MIN (>89) 63 ML/MIN (>89) Troponin I 0.18 NG/ML (0.02-0.05) 0.09 NG/ML (0.02-0.05) Calcium Level 8.4 MG/DL (8.5-10.1) Thyroid Stimulating Hormone 3rd Gen 4.080 uIU/ML (0.358-3.740) Test 04/23/17 04:34 Red Blood Count 4.43 MIL/MM3 (4.50-5.90) Platelet Count 105 TH/MM3 (150-450) Monocytes (%) (Auto) 9.3 % (0.0-8.0) Eosinophils (%) (Auto) 5.8 % (0.0-4.0) Calcium Level 8.0 MG/DL (8.5-10.1) Chloride Level 109 MEQ/L (98-107) Estimat Glomerular Filtration Rate 75 ML/MIN (>89) Troponin I 0.06 NG/ML (0.02-0.05) Imaging Last Impressions Chest X-Ray 04/22/17 1329 Signed Impressions: Service Date/Time: Saturday, April 22, 2017 14:21 - CONCLUSION: 1. No acute cardiopulmonary findings. Monty Gutierrez MD PE at Discharge GENERAL: This is a well-nourished, well-developed patient SKIN: No rashes, ecchymoses or lesions. Cool and dry. HEAD: Atraumatic. Normocephalic. No temporal or scalp tenderness. EYES: Extraocular motions intact. No scleral icterus. No injection or drainage. CARDIOVASCULAR: Regular rate and rhythm RESPIRATORY: Clear to auscultation. Breath sounds equal bilaterally. GASTROINTESTINAL: Abdomen soft, non-tender, nondistended. No hepato-splenomegaly , or palpable masses. No guarding. MUSCULOSKELETAL: Extremities without clubbing, cyanosis, or edema. No joint tenderness, effusion, or edema noted. No calf tenderness. Negative Homans sign bilaterally. NEUROLOGICAL: Awake and alert. No focal deficits appreciated. Motor and sensory grossly within normal limits. Five out of 5 muscle strength in all muscle groups. Normal speech. Hospital Course NSTEMI, initial episode of care Chest pain consistent with non-STEMI EKG on admission reveals: inverted T waves in V1 through V4 which appear new compared to old EKGs Initial troponin 0.18, serial cardiac enzymes pending Patient given aspirin and nitroglycerin paste in ER Patient started on heparin drip emergency department per protocol which was DC ' d after cardiac catheterization Patient S/P cardiac catheterization (04/23/17) revealed: 1. Normal coronary arteries. 2. Normal left-sided filling pressures. 3. Normal aorta. Per cardiology plan: The patient's symptoms suggest the EKG changes suggestive and troponin elevation are all concerning for obstructive physiology, but there is no fixed stenosis. suspect a vasospasm. Echocardiogram shows normal ejection fraction. HTN (hypertension) Patient was taking atenolol for hypertension 25 mg by mouth daily. After cardiac catheterization cardiology felt the patient possibly had vasospasms and started amlodipine will DC atenolol and continue amlodipine 5 mg by mouth daily Hyperlipidemia Lipid profile reviewed total cholesterol 166, LDL 94, HDL 45.2, Triglycerides 135 EtOH dependence CIWA protocol while in hospital encouraged patient to abstain Elevated TSH TSH 4.080 free T4 ordered for completeness patient will need repeat labs as an outpatient once acute illness resolved Patient to follow up with PCP Pt Condition on Discharge: Stable Discharge Disposition: Discharge Home Discharge Instructions DIET: Follow Instructions for: Heart Healthy Diet Activities you can perform: See Additionl Instruction Other Activity Instructions: Activity per cardiology Follow up Referrals: PCP Follow-up - [address] Crandall New Medications: Amlodipine (Norvasc) 5 Mg Tab 5 MG PO DAILY for blood pressure, heart, #30 TAB 0 Refills Continued Medications: Ciclopirox Topical (Ciclopirox Topical) 0.77% Cream 1 APPLIC TOPICAL TID for FUNGAL INFECTION, #15 GM 0 Refills Discontinued Medications: Atenolol (Atenolol) 25 Mg Tab 25 MG PO DAILY for Blood Pressure Management, #30 TAB Additional Information Patient examined. Assessment and plan formulated with Jocelyn Palomino PA-C. I agree with the above. Jocelyn Palomino Apr 23, 2017 09:41 Asif Hale DO Apr 25, 2017 01:14
[2017-04-23] MEDS: SODIUM CHLORIDE 0.9% FLUSH 10 ML FLUSH IV FLUSH SCH (09:46)
[2017-04-23] MEDS ORDERED: IOHEXOL 350 MG/ML 100 ML BTL (for Cath Lab) OTHER ONE (13:09)
--- NOTE | 2017-04-23 13:25 | EKG ---
Date Performed: 04/22/2017 Time Performed: 11:35:58 PTAGE: 51 years EKG: Sinus rhythm MODERATE T-WAVE ABNORMALITY, CONSIDER ANTERIOR ISCHEMIA ABNORMAL ECG NO PREVIOUS TRACING DOCTOR: Sean Miles Interpretating Date/Time 04/23/2017 13:23:35
--- NOTE | 2017-04-25 23:15 | EKG ---
Date Performed: 04/22/2017 Time Performed: 23:55:28 PTAGE: 51 years EKG: Sinus rhythm Prolonged QT interval Extensive ST-T changes may be due to myocardial ischemia Abnormal ECG NO PREVIOUS TRACING DOCTOR: Ryland Weeks Interpretating Date/Time 04/25/2017 23:06:52
== END 2017-04-23 13:10 | disposition home or self-care (01) | DRG 282 ==
LOC: NEPC 11:15 → NEDA 13:33 → N04A 19:21
PROVIDERS: ADMIT Hospitalist; ATTEND Hospitalist
PROC: 4A023N7 Measurement of Cardiac Sampling and Pressure, Left Heart, Percutaneous Approach (ICD-10-PCS; principal; 2017-04-22)
PROC: B2111ZZ Fluoroscopy of Multiple Coronary Arteries using Low Osmolar Contrast (ICD-10-PCS; 2017-04-22)
PROC: B2151ZZ Fluoroscopy of Left Heart using Low Osmolar Contrast (ICD-10-PCS; 2017-04-22)
DX: I21.4 Non-ST elevation (NSTEMI) myocardial infarction (principal); I10 Essential (primary) hypertension; G47.30 Sleep apnea, unspecified; E66.9 Obesity, unspecified; E78.5 Hyperlipidemia, unspecified; F10.20 Alcohol dependence, uncomplicated; I20.0 Unstable angina; Z68.36 Body mass index [BMI] 36.0-36.9, adult
CPT/HCPCS: 71045; 71046; 80048; 80061; 82550; 84439; 84443; 84484; 85025; 85027; 85610; 85730; 93005; 93306; 93458; 93567; 96360; 99152; C1769; C1893; J1644; J2250; J3010; J7040; Q9967

== ENCOUNTER 2017-04-29 08:17 | Observation (INO) | payer OTHER ==
[2017-04-29] VITALS (9 sets, daily range): BP systolic 113–175; BP diastolic 66–105; PULSE 92–124; RESP 18–20; TEMP 98–98.7; O2SAT 94–98
[~2017-04-29] VITALS: Ht 182.9 cm; Wt 123.5 kg
[~2017-04-29 08:17] MED LIST: AMLO5 PO; [UNRECOGNIZED DRUG - CODE] TOPICAL
[2017-04-29] MEDS ORDERED: SODIUM CHLORID 0.9% 500 ML INJ 500 ML IV ONE (08:45)
[2017-04-29] MEDS ORDERED: SODIUM CHLORIDE 0.9% FLUSH 10 ML FLUSH IVF PRN (08:45)
[2017-04-29 09:05] LABS: AUTOMATED NEUTROPHIL # 6.4 TH/MM3 (1.8-7.7); BASOPHIL # 0.1 TH/MM3 (0-0.2); BASOPHIL % 0.9 % (0.0-2.0); EOSINOPHIL # 0.4 TH/MM3 (0-0.4); EOSINOPHIL % 3.8 % (0.0-4.0); HEMATOCRIT 49.7 % (39.0-51.0); HEMOGLOBIN 17.3 GM/DL (13.0-17.0); LYMPH % 19.5 % (9.0-44.0); LYMPHOCYTE # 1.9 TH/MM3 (1.0-4.8); MEAN CORPUSCULAR HEMOGLOBIN 33.1 PG (27.0-34.0); MEAN CORPUSCULAR HGB CONC 34.9 % (32.0-36.0); MEAN PLATELET VOLUME 7.8 FL (7.0-11.0); MONO % 8.9 % (0.0-8.0); MONOCYTE # 0.8 TH/MM3 (0-0.9); NEUT % 66.9 % (16.0-70.0); PLATELET COUNT 264 TH/MM3 (150-450); RED BLOOD COUNT 5.24 MIL/MM3 (4.50-5.90); RED CELL DISTRIBUTION WIDTH 14.1 % (11.6-17.2); WHITE BLOOD COUNT 9.5 TH/MM3 (4.0-11.0)
--- NOTE | 2017-04-29 09:09 | RADRPT ---
EXAM DATE/TIME: 04/29/2017 08:50 [facility] COMPARISON: CHEST PA & LAT, April 22, 2017, 11:45. INDICATIONS : Shortness of breath. MEDICAL HISTORY : Hypertension. Hypercholesterolemia. SURGICAL HISTORY : None. ENCOUNTER: Initial ACUITY: 3 days PAIN SCORE: 0/10 LOCATION: Bilateral chest FINDINGS: PA and lateral views of the chest demonstrate the lungs to be symmetrically aerated without evidence of mass, infiltrate or effusion. The cardiomediastinal contours are unremarkable. Osseous structure s are intact. CONCLUSION: The lungs are clear. Cliff Garces MD on April 29, 2017 at 9:07 Board Certified Radiologist. This report was verified electronically.
[2017-04-29 09:14] LABS: INTERNATIONAL NORMALIZED RATIO 1.1 RATIO; PROTHROMBIN TIME - PATIENT 10.9 SEC (9.8-11.6)
[2017-04-29 09:24] LABS: TROPONIN I 0.03 NG/ML (0.02-0.05)
--- NOTE | 2017-04-29 09:29 | PD ---
HPI Chief Complaint: Cardiac Complaint Time Seen by Provider: 08:23 Travel History International Travel<30 days: No Contact w/Intl Traveler<30days: No Traveled to known affect area: No History of Present Illness HPI This is a 51-year-old male with a history of hypertension, hyperlipidemia,, presents here from his doctor's office for evaluation for rapid heart rate. The patient apparently was seen and evaluated by his primary care doctor today. He reported that he was having dyspnea on exertion. Patient was also having palpitations. He reports that his doctor told him he had an elevated heart rate and sent him here for further evaluation. The patient denies any chest pain, chest pressure. He reports he can walk only a short distance before becoming short of breath. He denies any increased swelling of his arms or legs. He denies any other complaints at the time of my examination. PFSH Past Medical History Hx Anticoagulant Therapy: Yes Autoimmune Disease: No Cancer: No Cardiovascular Problems: Yes High Cholesterol: Yes Chest Pain: Yes (04/22/17) Endocrine: No Genitourinary: No Hypertension: Yes Immune Disorder: No Musculoskeletal: No Neurologic: No Psychiatric: No Reproductive: No Respiratory: No Sleep Apnea: Yes Tetanus Vaccination: > 5 Years Influenza Vaccination: No Past Surgical History Cardiac Surgery: Yes (heart cath 2017) Other Surgery: Yes Social History Alcohol Use: Yes Tobacco Use: No Substance Use: No Allergies-Medications (Allergen,Severity, Reaction): Coded Allergies: No Known Allergies (Unverified , 04/22/17) Reported Meds & Prescriptions Reported Meds & Active Scripts Active Norvasc (Amlodipine Besylate) 5 Mg Tab 5 Mg PO DAILY Review of Systems Except as stated in HPI: all other systems reviewed are Neg General / Constitutional: No: Fever, Chills HENT: No: Headaches, Lightheadedness Cardiovascular: Positive: Palpitations, Tachycardia, No: Chest Pain or Discomfort Respiratory: Positive: Shortness of Breath, No: Cough, Wheezing Gastrointestinal: No: Nausea, Vomiting, Abdominal Pain Genitourinary: No: Dysuria, Decreased Urinary Output Musculoskeletal: No: Weakness (No increased), Edema, Pain Neurologic: No: Weakness, Dizziness, Headache, Change in Mentation Physical Exam Narrative GENERAL: Well-developed well-nourished male in no acute distress. SKIN: Focused skin assessment warm/dry. HEAD: Atraumatic. Normocephalic. EYES: No scleral icterus. No injection or drainage. ENT: No nasal bleeding or discharge. Mucous membranes pink and slightly dry. NECK: Trachea midline. No JVD. CARDIOVASCULAR: Sinus tachycardia with a rate of 120. No murmur appreciated. RESPIRATORY: No accessory muscle use. Clear to auscultation. Breath sounds equal bilaterally. No rales or rhonchi appreciated. GASTROINTESTINAL: Abdomen soft, non-tender, nondistended. Obese. MUSCULOSKELETAL: No obvious deformities. No clubbing. No cyanosis. Questionable trace pretibial edema. No calf tenderness. No palpable cords in the popliteal area. NEUROLOGICAL: Awake and alert. No obvious cranial nerve deficits. Motor grossly within normal limits. Normal speech. Data Data Last Documented VS Vital Signs Date Time Temp Pulse Resp B/P (MAP) Pulse Ox O2 Delivery O2 Flow Rate FiO2 04/29/17 12:30 88 Room Air 04/29/17 10:57 106 20 136/68 (90) 2.00 04/29/17 08:17 98.3 Orders Orders Basic Metabolic Panel (Bmp) (04/29/17 08:32) Ckmb (Isoenzyme) Profile (04/29/17 08:32) Complete Blood Count With Diff (04/29/17 08:32) Magnesium (Mg) (04/29/17 08:32) Prothrombin Time / Inr (Pt) (04/29/17 08:32) Act Partial Throm Time (Ptt) (04/29/17 08:32) Troponin I (04/29/17 08:32) Ecg Monitoring (04/29/17 08:32) Bilateral Bp Monitoring (04/29/17 08:32) Iv Access Insert/Monitor (04/29/17 08:32) Oximetry (04/29/17 08:32) Oxygen Administration (04/29/17 08:32) Sodium Chloride 0.9% Flush (Ns Flush) (04/29/17 08:45) Sodium Chlorid 0.9% 500 Ml Inj (Ns 500 M (04/29/17 08:45) Chest, Pa & Lat (04/29/17 08:32) CKMB (04/29/17 08:41) CKMB% (04/29/17 08:41) Electrocardiogram (04/29/17 08:27) Sodium Chlor 0.9% 1000 Ml Inj (Ns 1000 M (04/29/17 11:15) Ct Pulmonary Angiogram (04/29/17 12:59) Admit Order (Ed Use Only) (04/29/17 13:12) Labs Laboratory Tests Test 04/29/17 08:41 White Blood Count 9.5 TH/MM3 Red Blood Count 5.24 MIL/MM3 Hemoglobin 17.3 GM/DL Hematocrit 49.7 % Mean Corpuscular Volume 95.0 FL Mean Corpuscular Hemoglobin 33.1 PG Mean Corpuscular Hemoglobin Concent 34.9 % Red Cell Distribution Width 14.1 % Platelet Count 264 TH/MM3 Mean Platelet Volume 7.8 FL Neutrophils (%) (Auto) 66.9 % Lymphocytes (%) (Auto) 19.5 % Monocytes (%) (Auto) 8.9 % Eosinophils (%) (Auto) 3.8 % Basophils (%) (Auto) 0.9 % Neutrophils # (Auto) 6.4 TH/MM3 Lymphocytes # (Auto) 1.9 TH/MM3 Monocytes # (Auto) 0.8 TH/MM3 Eosinophils # (Auto) 0.4 TH/MM3 Basophils # (Auto) 0.1 TH/MM3 CBC Comment DIFF FINAL Differential Comment Prothrombin Time 10.9 SEC Prothromb Time International Ratio 1.1 RATIO Activated Partial Thromboplast Time 27.3 SEC Blood Urea Nitrogen 16 MG/DL Creatinine 1.26 MG/DL Random Glucose 105 MG/DL Calcium Level 9.2 MG/DL Magnesium Level 2.0 MG/DL Sodium Level 137 MEQ/L Potassium Level 4.5 MEQ/L Chloride Level 105 MEQ/L Carbon Dioxide Level 24.5 MEQ/L Anion Gap 8 MEQ/L Estimat Glomerular Filtration Rate 60 ML/MIN Total Creatine Kinase 101 U/L Creatine Kinase MB 2.1 NG/ML Troponin I 0.03 NG/ML [facility] Medical Decision Making Medical Screen Exam Complete: Yes Emergency Medical Condition: Yes Differential Diagnosis ACS versus dehydration versus anemia versus metabolic derangement versus pulmonary embolus Narrative Course 51-year-old male with a recent history of non-ST elevation [place], presents today from his doctor's office with persistent tachycardia. Patient has a heart rate in 120s 130s. He was given a liter and half of IV fluid which brought his heart rate down to the high 90s low 100s. He states he felt much improved. He was ambulated throughout the department with his heart rate went back up to the 140s. He will be admitted to the hospital. A CT angiogram to rule out PE has been ordered. 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 This is a risk factor for pulmonary embolus. Diagnosis Primary Impression: Persistent tachycardia Additional Impressions: Coronary artery disease Hyperlipidemia HTN (hypertension) Admitting Information Admitting Physician Requests: Observation Will Herrera MD Apr 29, 2017 09:29
[2017-04-29 09:36] LABS: BICARBONATE 24.5 MEQ/L (21.0-32.0); BLOOD UREA NITROGEN 16 MG/DL (7-18); CALCIUM 9.2 MG/DL (8.5-10.1); CHLORIDE 105 MEQ/L (98-107); CREATININE 1.26 MG/DL (0.60-1.30); GLOMERULAR FILTRATION RATE 60 ML/MIN (>89); GLUCOSE,RANDOM 105 MG/DL (74-106); SODIUM (NA) 137 MEQ/L (136-145)
[2017-04-29] MEDS ORDERED: SODIUM CHLOR 0.9% 1000 ML INJ 1,000 ML IV ONE (11:15)
[2017-04-29] MEDS ORDERED: IOHEXOL 350 MG/ML 10 ML VIAL (for RAD DIAG) IVCONTRAST ONE (13:15)
--- NOTE | 2017-04-29 13:25 | HHI.HP ---
HPI Service [facility] Hospitalists Primary Care Physician Drake Taylor MD Admission Diagnosis symptomatic tachycardia, recent nstemi, cad, Chief Complaint: Palpitations, SOB Travel History International Travel<30 Days: No Contact w/Intl Traveler <30 Da: No Traveled to Known Affected Are: No History of Present Illness Mr. Sharma is a pleasant 51 y/o male with HTN, Hyperlipidemia, obesity and LAURA. Pt was just admitted from 04/22/17-04/23/17 with complaints of chest pain and SOB. He was noted to have mildly elevated troponin and EKG changes and pt was seen by cardiology. Pt underwent LHC on 04/22/17 which noted normal coronary arteries, normal left-sided filling pressures, and normal aorta. 2D echo at that time noted normal systolic function with estimated EF 50-55%. It was felt that his symptoms and elevated troponin/EKG changes were related to possible vasospasm. Pt was started on Norvasc and his Atenolol was stopped. 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 He states that since that admission he has continued to have exertional SOB. He denies any further chest pain. Pt was seen by his PCP, Dr. Taylor, in followup and was noted to have tachycardia and he states that he has felt palpitations since that hospitalization. Pt was sent to the ED for further evaluation. His first set of CE in the ED were negative. Pt was noted to have sinus tachycardia on telemetry. His rate with ambulation was up in the 140's. Resting in the room he is sustaining in the 110-120's. He denies any nausea/vomiting, headache, chest pain, diaphoresis, dizziness or lightheadedness. Review of Systems Constitutional: DENIES: Fever, Dizziness, Change in appetite Eyes: DENIES: Vision loss Ears, nose, mouth, throat: DENIES: Hearing loss Respiratory: COMPLAINS OF: Shortness of breath, DENIES: Cough Cardiovascular: COMPLAINS OF: Palpitations, Dyspnea on Exertion, DENIES: Chest pain Gastrointestinal: DENIES: Abdominal pain, Black stools, Bloody stools, Nausea, Vomiting Genitourinary: DENIES: Hematuria, Dysuria Musculoskeletal: DENIES: Back pain, Neck pain Integumentary: DENIES: Rash Neurologic: DENIES: Headache Psychiatric: DENIES: Confusion Past Family Social History Past Medical History HTN Hyperlipidemia Obesity LAURA Past Surgical History Cardiac catheterization (04/23/17) --> Normal coronary arteries. Normal left- sided filling pressures. Normal aorta. Right hand surgery Jaw surgery Oral surgery for tooth extraction Reported Medications Norvasc 5 Mg PO DAILY ASA 81mg PO DAILY Allergies: Coded Allergies: No Known Allergies (Unverified , 04/22/17) Family History Mother passed with secondary breast cancer Patient has brother and sister who are alive and healthy Social History (+)Alcohol use, 3-4 beers per day, none for the last week Denies any tobacco or illicit drug use Physical Exam Vital Signs Vital Signs Date Time Temp Pulse Resp B/P (MAP) Pulse Ox O2 Delivery O2 Flow Rate FiO2 04/29/17 10:57 106 20 136/68 (90) 94 Nasal Cannula 2.00 04/29/17 09:12 95 Nasal Cannula 2.00 04/29/17 09:12 112 20 95 Nasal Cannula 2.00 04/29/17 08:32 95 Nasal Cannula 2.00 04/29/17 08:26 124 20 91 Room Air 04/29/17 08:17 98.3 124 18 175/105 (128) 95 Room Air Physical Exam GENERAL: This is a well-nourished, well-developed patient, in no apparent distress. HEENT: Atraumatic. Normocephalic. No temporal or scalp tenderness. No scleral icterus. Airway patent. NECK: Trachea midline, supple, nontender. CARDIO: Tachy, regular RESP: CTA bilaterally. No wheezes, rales, or rhonchi. ABD: +BS, soft, non-tender, nondistended. EXT: Extremities without clubbing, cyanosis, or edema. NEURO: Awake and alert. Motor and sensory grossly within normal limits. Normal speech. Laboratory Laboratory Tests Test 04/29/17 08:41 White Blood Count 9.5 Red Blood Count 5.24 Hemoglobin 17.3 Hematocrit 49.7 Mean Corpuscular Volume 95.0 Mean Corpuscular Hemoglobin 33.1 Mean Corpuscular Hemoglobin Concent 34.9 Red Cell Distribution Width 14.1 Platelet Count 264 Mean Platelet Volume 7.8 Neutrophils (%) (Auto) 66.9 Lymphocytes (%) (Auto) 19.5 Monocytes (%) (Auto) 8.9 Eosinophils (%) (Auto) 3.8 Basophils (%) (Auto) 0.9 Neutrophils # (Auto) 6.4 Lymphocytes # (Auto) 1.9 Monocytes # (Auto) 0.8 Eosinophils # (Auto) 0.4 Basophils # (Auto) 0.1 CBC Comment DIFF FINAL Differential Comment Prothrombin Time 10.9 Prothromb Time International Ratio 1.1 Activated Partial Thromboplast Time 27.3 Blood Urea Nitrogen 16 Creatinine 1.26 Random Glucose 105 Calcium Level 9.2 Magnesium Level 2.0 Sodium Level 137 Potassium Level 4.5 Chloride Level 105 Carbon Dioxide Level 24.5 Anion Gap 8 Estimat Glomerular Filtration Rate 60 Total Creatine Kinase 101 Creatine Kinase MB 2.1 Troponin I 0.03 Result Diagram: 04/29/1741 04/29/17840 Imaging Last Impressions Chest X-Ray 04/29/17 0832 Signed Impressions: Service Date/Time: Saturday, April 29, 2017 08:50 - CONCLUSION: The lungs are clear. Cliff Garces MD Caprini VTE Risk Assessment Caprini VTE Risk Assessment: Mod/High Risk (score >= 2) Caprini Risk Assessment Model Point Value = 1 Point Value = 2 Point Value = 3 Point Value = 5 Age 41-60 Minor surgery BMI > 25 kg/m2 Swollen legs Varicose veins or History of unexplained or recurrent spontaneous Oral contraceptives or hormone replacement Sepsis (< 1 month) Serious lung disease, including pneumonia (< 1 month) Abnormal pulmonary function Acute myocardial infarction Congestive heart failure (< 1 month) History of inflammatory bowel disease Medical patient at bed rest Age 61-74 Arthroscopic surgery Major open surgery (> 45 min) Laparoscopic surgery (> 45 min) Malignancy Confined to bed (> 72 hours) Immobilizing plaster cast Central venous access Age >= 75 History of VTE Family history of VTE Factor V Leiden Prothrombin [id number] Lupus anticoagulant Anticardiolipin antibodies Elevated serum homocysteine Heparin-induced thrombocytopenia Other congenital or acquired thrombophilia Stroke (< 1 month) Elective arthroplasty Hip, pelvis, or leg fracture Acute spinal cord injury (< 1 month) Prophylaxis Regimen Total Risk Factor Score Risk Level Prophylaxis Regimen 0-1 Low Early ambulation 2 Moderate Order ONE of the following: *Sequential Compression Device (SCD) *Heparin 5000 units SQ BID 3-4 Higher Order ONE of the following medications: *Heparin 5000 units SQ TID *Enoxaparin/Lovenox 40 mg SQ daily (WT < 150 kg, CrCl > 30 mL/min) *Enoxaparin/Lovenox 30 mg SQ daily (WT < 150 kg, CrCl > 10-29 mL/min) *Enoxaparin/Lovenox 30 mg SQ BID (WT < 150 kg, CrCl > 30 mL/min) AND/OR *Sequential Compression Device (SCD) 5 or more Highest Order ONE of the following medications: *Heparin 5000 units SQ TID (Preferred with Epidurals) *Enoxaparin/Lovenox 40 mg SQ daily (WT < 150 kg, CrCl > 30 mL/min) *Enoxaparin/Lovenox 30 mg SQ daily (WT < 150 kg, CrCl > 10-29 mL/min) *Enoxaparin/Lovenox 30 mg SQ BID (WT < 150 kg, CrCl > 30 mL/min) AND *Sequential Compression Device (SCD) Assessment and Plan Problem List: (1) SOB (shortness of breath) on exertion ICD Codes: R06.02 - Shortness of breath Plan: Exertional SOB Sustained tachycardia - Pt is a 51 y/o male with HTN, Hyperlipidemia, obesity and LAURA. - Pt was just admitted from 04/22/17-04/23/17 with complaints of chest pain and SOB. He was noted to have mildly elevated troponin and EKG changes and pt was seen by cardiology. Pt underwent LHC on 04/22/17 which noted normal coronary arteries, normal left-sided filling pressures, and normal aorta. 2D echo at that time noted normal systolic function with estimated EF 50-55% . It was felt that his symptoms and elevated troponin/EKG changes were related to possible vasospasm. Pt was started on Norvasc and his Atenolol was stopped. 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 - Since that admission he has continued to have exertional SOB and palpitations. - Pt was seen by his PCP, Dr. Taylor, in followup and was noted to have tachycardia and he states that he has felt palpitations since that hospitalization. - His first set of CE in the ED were negative. - Pt was noted to have sinus tachycardia on telemetry. His rate with ambulation was up in the 140's. Resting in the room he is sustaining in the 110- 120's. - Check CTA chest to r/o PE - cardiac monitor - Pt reports that he has not had any alcohol since his previous hospitalization. - Resume home meds - Supportive care HTN - Cont. home meds - Monitor Hx of EtOH dependency - Pt has not had any alcohol for the last week, it would be less likely that he would still be going through any withdrawals currently if it truly has been a week without alcohol - Ativan PRN - Encouraged continued cessation ADDENDUM (14:36): - CTA results with extensive bilateral PEs - Pt to be started on Eliquis 10mg po BID x 7 days, then decrease dose to 5mg po BID - Pt is saturating well on room air - Check a walk test in the morning. (2) Tachyarrhythmia ICD Codes: R00.0 - Tachycardia, unspecified (3) HTN (hypertension) ICD Codes: I10 - Essential (primary) hypertension (4) Hyperlipidemia ICD Codes: E78.5 - Hyperlipidemia, unspecified (5) EtOH dependence ICD Codes: F10.20 - Alcohol dependence, uncomplicated Status: Chronic Code Status Patient examined. Assessment and plan formulated with Radha Aguilera PA-C. I agree with the above. sob/tachycardia. recent sedentary. bilateral pulmonary PE"s eliquis. walk test in AM and dc home f/u pcp. Radha Aguilera Apr 29, 2017 13:25 Vinod Uriostegui MD Apr 29, 2017 15:20
[2017-04-29] MEDS ORDERED: ONDANSETRON HCL 4 MG/2 ML VIAL IV PRN (14:00)
[2017-04-29] MEDS ORDERED: ACETAMINOPHEN 325 MG TAB PO PRN (14:00)
--- NOTE | 2017-04-29 14:27 | RADRPT ---
EXAM DATE/TIME: 04/29/2017 13:36 [facility] COMPARISON: No previous studies available for comparison. INDICATIONS : Short of breath, evaluate for pulmonary emboli. IV CONTRAST: 72 cc Omnipaque 350 (iohexol) IV RADIATION DOSE: 23.24 CTDIvol (mGy) MEDICAL HISTORY : Cardiovascular disease. Hypertension. SURGICAL HISTORY : None. ENCOUNTER: Initial ACUITY: 1 day PAIN SCALE: 0/10 LOCATION: chest TECHNIQUE: Volumetric scanning of the chest was performed using a pulmonary embolism protocol MIP images were re constructed. Using automated exposure control and adjustment of the mA and/or kV according to patien t size, radiation dose was kept as low as reasonably achievable to obtain optimal diagnostic quality images. DICOM format image data is available electronically for review and comparison. Follow-up recommendations for detected pulmonary nodules are based at a minimum on nodule size and pa tient risk factors according to Fleischner Society Guidelines. FINDINGS: PULMONARY ARTERIES: Abnormal. There are multiple filling defects in the left and right pulmonary arteries at the hilum e xtending into the left upper, left lingular, and left lower lobe segments. On the right side, there is extension into the right upper and right middle and right lower lobe segmental vessels. LUNGS: Focal area of consolidation in the medial left upper lobe with some air bronchograms. There is incre ased ground substance the right perihilar region. PLEURAE: There is no pleural thickening or pleural effusion. MEDIASTINUM: There is good visualization of the great vessels of the middle mediastinum. No evidence of mediastin al or hilar adenopathy/mass. CONCLUSION: 1. Abnormal study demonstrating extensive bilateral pulmonary embolism involving all segments of both lungs. 2. Subsegmental consolidation medial left upper lobe. Cliff Garces MD on April 29, 2017 at 13:58 Board Certified Radiologist. This report was verified electronically.
--- NOTE | 2017-04-29 14:42 | EKG ---
Date Performed: 04/29/2017 Time Performed: 08:27:27 PTAGE: 51 years EKG: SINUS TACHYCARDIA NONSPECIFIC T-WAVE ABNORMALITY ABNORMAL RHYTHM ECG PREVIOUS TRACING : 04/22/2017 23.55 Since the prior tracing, the marked anteroseptal T-wave michele nges have resolved. Clinical correlation to assess the serial changes will be important. DOCTOR: Erica Garcias Interpretating Date/Time 04/29/2017 14:37:18
[2017-04-29] MEDS: APIXABAN 5 MG TABLET PO SCH ×2 (15:43→21:35)
--- NOTE | 2017-04-29 19:32 | RADRPT ---
EXAM DATE/TIME: 04/29/2017 18:58 [facility] COMPARISON: No previous studies available for comparison. INDICATIONS : Pulmonary embolism. MEDICAL HISTORY : Cardiovascular disease. Hypertension SURGICAL HISTORY : Cardiac catheterization. ENCOUNTER: Initial ACUITY: 1 day PAIN SCORE: 0/10 LOCATION: Bilateral legs. TECHNIQUE: Venous ultrasound of the left and right leg was performed from the inguinal ligament to the proximal calf. Real-time, color Doppler and spectral tracing, compression and augmentation techniques were us ed. FINDINGS: RIGHT LEG: There is nonocclusive thrombus in the right popliteal vein with occlusive thrombus more peripherally in the right peroneal and posterior tibial veins. There is normal compressibility of the deep venous system from the inguinal region to the proximal calf. No echogenic clot is seen in the lumen of the common femoral, and femoral veins. There is a normal response of the venous system to proximal and d istal augmentation and respiration. LEFT LEG: There is normal compressibility of the deep venous system from the inguinal region to the proximal ca lf. No echogenic clot is seen in the lumen of the common femoral, femoral, popliteal, and posterior tibial veins. There is a normal response of the venous system to proximal and distal augmentation an d respiration. CONCLUSION: 1. Positive for right lower extremity DVT. Nonocclusive popliteal vein DVT and occlusive DVT more per ipherally in the right peroneal and posterior tibial veins. 2. No sonographic evidence for left lower extremity DVT. Marcos Nunes MD on April 29, 2017 at 19:28 Board Certified Radiologist. This report was verified electronically.
[2017-04-30] VITALS: PULSE 90
[2017-04-30 04:00] VITALS: PULSE 84
[2017-04-30 04:40] VITALS: BP 115/67; PULSE 88; RESP 17; TEMP 98.2; O2SAT 95
[2017-04-30] MEDS ORDERED: OXYGENDME NAS.CANULA (07:56)
[2017-04-30] MEDS ORDERED: APIX5TAB PO (07:56)
--- NOTE | 2017-04-30 07:57 | HHI.DCPOC ---
Discharge Care Plan Diagnosis: (1) Pulmonary embolism (2) SOB (shortness of breath) on exertion (3) Tachyarrhythmia (4) HTN (hypertension) (5) Hyperlipidemia Goals to Promote Your Health - Patient is to continue taking Eliquis 10mg twice daily through 05/06/17. - On 05/07/17 he is to decrease dose of Eliquis to 5mg twice daily. - Patient is to followup with his PCP, Dr. Taylor, in 1 week, call for an appt. Directions to Meet Your Goals Take your medications as prescribed Follow your dietary instruction Follow activity as directed Keep your appointments as scheduled Take your immunizations and boosters as scheduled If your symptoms worsen call your PCP, if no PCP go to Urgent Care Center or Emergency Room Smoking is Dangerous to Your Health. Avoid second hand smoke Call the 24-hour hour crisis hotline for domestic abuse at Radha Aguilera Apr 30, 2017 07:57
--- NOTE | 2017-04-30 07:58 | HHI.FF ---
Face to Face Verification Diagnosis: (1) Pulmonary embolism (2) Tachyarrhythmia (3) HTN (hypertension) (4) Hyperlipidemia (5) SOB (shortness of breath) on exertion Home Health Nursing Order: Oxygen administration education Nursing assessment with vital signs I have seen patient Se Sharma on 04/30/17. My clinical findings support the need for the requested home health care services because: Patient has SOB I certify that my clinical findings support that this patient is homebound because: Unable to use public transportation Radha Aguilera Apr 30, 2017 07:58
[2017-04-30 08:00] VITALS: BP 125/75; PULSE 99; RESP 18; TEMP 96; O2SAT 96
--- NOTE | 2017-04-30 08:15 | HHI.PR ---
Subjective Remarks Pt did not pass his walk test early this morning as his O2 sats dropped to 80% with ambulation He has been off supplemental O2 since that time His HR increases with ambulation into the 130-140's on telemetry At rest his HR is in the 80-90's Pt is anxious to go home today Objective Vitals Vital Signs Date Time Temp Pulse Resp B/P (MAP) Pulse Ox O2 Delivery O2 Flow Rate FiO2 04/30/17 04:40 98.2 88 17 115/67 (83) 95 04/30/17 04:00 84 04/30/17 00:00 90 04/29/17 23:58 98 Nasal Cannula 2.00 04/29/17 23:47 98.0 92 18 113/66 (82) 95 04/29/17 20:50 98.1 106 18 140/85 (103) 96 04/29/17 20:14 105 04/29/17 15:00 112 04/29/17 14:04 98.7 112 20 138/99 (112) 04/29/17 13:47 04/29/17 12:30 88 Room Air 04/29/17 10:57 106 20 136/68 (90) 94 Nasal Cannula 2.00 04/29/17 09:12 95 Nasal Cannula 2.00 04/29/17 09:12 112 20 95 Nasal Cannula 2.00 04/29/17 08:32 95 Nasal Cannula 2.00 04/29/17 08:26 124 20 91 Room Air 04/29/17 08:17 98.3 124 18 175/105 (128) 95 Room Air Result Diagram: 04/29/17 0841 04/29/17 0841 Other Results Laboratory Tests Test 04/29/17 08:41 White Blood Count 9.5 TH/MM3 Red Blood Count 5.24 MIL/MM3 Hemoglobin 17.3 GM/DL Hematocrit 49.7 % Mean Corpuscular Volume 95.0 FL Mean Corpuscular Hemoglobin 33.1 PG Mean Corpuscular Hemoglobin Concent 34.9 % Red Cell Distribution Width 14.1 % Platelet Count 264 TH/MM3 Mean Platelet Volume 7.8 FL Neutrophils (%) (Auto) 66.9 % Lymphocytes (%) (Auto) 19.5 % Monocytes (%) (Auto) 8.9 % Eosinophils (%) (Auto) 3.8 % Basophils (%) (Auto) 0.9 % Neutrophils # (Auto) 6.4 TH/MM3 Lymphocytes # (Auto) 1.9 TH/MM3 Monocytes # (Auto) 0.8 TH/MM3 Eosinophils # (Auto) 0.4 TH/MM3 Basophils # (Auto) 0.1 TH/MM3 CBC Comment DIFF FINAL Differential Comment Prothrombin Time 10.9 SEC Prothromb Time International Ratio 1.1 RATIO Activated Partial Thromboplast Time 27.3 SEC Blood Urea Nitrogen 16 MG/DL Creatinine 1.26 MG/DL Random Glucose 105 MG/DL Calcium Level 9.2 MG/DL Magnesium Level 2.0 MG/DL Sodium Level 137 MEQ/L Potassium Level 4.5 MEQ/L Chloride Level 105 MEQ/L Carbon Dioxide Level 24.5 MEQ/L Anion Gap 8 MEQ/L Estimat Glomerular Filtration Rate 60 ML/MIN Total Creatine Kinase 101 U/L Creatine Kinase MB 2.1 NG/ML Troponin I 0.03 NG/ML Imaging Last Impressions CT Angiography 04/29/17 1259 Signed Impressions: Service Date/Time: Saturday, April 29, 2017 13:36 - CONCLUSION: 1. Abnormal study demonstrating extensive bilateral pulmonary embolism involving all segments of both lungs. 2. Subsegmental consolidation medial left upper lobe. Cliff Garces MD Chest X-Ray 04/29/17 0832 Signed Impressions: Service Date/Time: Saturday, April 29, 2017 08:50 - CONCLUSION: The lungs are clear. Cliff Garces MD Lower Extremity Ultrasound 04/29/17 0000 Signed Impressions: Service Date/Time: Saturday, April 29, 2017 18:58 - CONCLUSION: 1. Positive for right lower extremity DVT. Nonocclusive popliteal vein DVT and occlusive DVT more peripherally in the right peroneal and posterior tibial veins. 2. No sonographic evidence for left lower extremity DVT. Marcos Nunes MD Last Impressions Chest X-Ray 04/29/17 0832 Signed Impressions: Service Date/Time: Saturday, April 29, 2017 08:50 - CONCLUSION: The lungs are clear. Cliff Garces MD Objective Remarks General: NAD, AAOx3 Chest: CTA Cardiac: Regular Abd: +BS, soft ND/NT Ext: No edema A/P Problem List: (1) SOB (shortness of breath) on exertion ICD Codes: R06.02 - Shortness of breath Plan: Bilateral PE/Right DVT Exertional SOB Sustained tachycardia - Pt is a 51 y/o male with HTN, Hyperlipidemia, obesity and LAURA. - Pt was just admitted from 04/22/17-04/23/17 with complaints of chest pain and SOB. He was noted to have mildly elevated troponin and EKG changes and pt was seen by cardiology. Pt underwent LHC on 04/22/17 which noted normal coronary arteries, normal left-sided filling pressures, and normal aorta. 2D echo at that time noted normal systolic function with estimated EF 50-55% . It was felt that his symptoms and elevated troponin/EKG changes were related to possible vasospasm. Pt was started on Norvasc and his Atenolol was stopped. 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 - Since that admission he has continued to have exertional SOB and palpitations. - Pt was seen by his PCP, Dr. Taylor, in followup and was noted to have tachycardia and he states that he has felt palpitations since that hospitalization. - His CE in the ED were negative. - Pt was noted to have sinus tachycardia on telemetry. His rate with ambulation was up in the 140's. Resting in the room he is sustaining in the 110- 120's. - CTA Chest (04/29/17) --> Abnormal study demonstrating extensive bilateral pulmonary embolism involving all segments of both lungs. Subsegmental consolidation medial left upper lobe - Bilateral Doppler US (04/29/17) --> Positive for right lower extremity DVT, nonocclusive popliteal vein DVT and occlusive DVT more peripherally in the right peroneal and posterior tibial veins. No sonographic evidence for left lower extremity DVT. - Pt was started on Eliquis 10mg po BID x 7 days (04/29/17-->05/06/17), then decrease dose to 5mg po BID - radiation monitor with HR into the 130-140's, sinus rhythm, when pt is ambulating. At rest HR in the 80-90s - Pt failed his walk test early this morning, arrange for home O2 and HHC - Pt will need to followup with his PCP, Dr. Hyrum, next week and his O2 requirements can be retested - Pt would like to resume work on Tuesday on light duty, he was given a note for this. - Resume home meds - Supportive care HTN - Cont. home meds - Monitor Hx of EtOH dependency - Encouraged continued cessation (2) Tachyarrhythmia ICD Codes: R00.0 - Tachycardia, unspecified (3) HTN (hypertension) ICD Codes: I10 - Essential (primary) hypertension (4) Hyperlipidemia ICD Codes: E78.5 - Hyperlipidemia, unspecified (5) EtOH dependence ICD Codes: F10.20 - Alcohol dependence, uncomplicated Status: Chronic Assessment and Plan Patient examined. Assessment and plan formulated with Radha Aguilera PA-C. I agree with the above. acute pulmonary emboli and rle dvt from sedentary events on his job over past several weeks. exertional hypoxia. d/c home on eliquis and oxygen. can f/u pcp to see if o2 can be discontinued. Radha Aguilera Apr 30, 2017 08:15 Vinod Uriostegui MD Apr 30, 2017 13:09
[2017-04-30] MEDS ORDERED: amLODIPine BESYLATE 5 MG TAB PO SCH (09:00)
[2017-04-30] MEDS: APIXABAN 5 MG TABLET PO SCH (09:19)
[2017-04-30 09:30] VITALS: O2SAT 91
[2017-04-30 12:00] VITALS: BP 120/79; PULSE 108; RESP 18; TEMP 96.1; O2SAT 94
== END 2017-04-30 15:10 | disposition home or self-care (01) ==
LOC: NEPE 08:17 → NEDA 13:14 → NEPHCDU 13:55
PROVIDERS: ADMIT Hospitalist; ATTEND Hospitalist
DX: I26.99 Other pulmonary embolism without acute cor pulmonale (principal); I82.401 Acute embolism and thrombosis of unspecified deep veins of right lower extremity; I25.10 Atherosclerotic heart disease of native coronary artery without angina pectoris; R09.02 Hypoxemia; I10 Essential (primary) hypertension; E78.5 Hyperlipidemia, unspecified; G47.33 Obstructive sleep apnea (adult) (pediatric); F10.20 Alcohol dependence, uncomplicated; E66.9 Obesity, unspecified; E78.00 Pure hypercholesterolemia, unspecified; I25.2 Old myocardial infarction; Z68.36 Body mass index [BMI] 36.0-36.9, adult
CPT/HCPCS: 71046; 71275; 80048; 82550; 82552; 83735; 84484; 85025; 85610; 85730; 93005; 93970; 94618; 96360; 96361; 99285; G0378; J7030; J7040; Q9967